=== PATIENT | female | born 1980 | race Hispanic/Latino ===

== ENCOUNTER 2024-12-11 11:51 | Emergency (ER) | payer MEDICAID ==
[~2024-12-11] VITALS: Ht 180.3 cm; Wt 83.9 kg
[2024-12-11 12:00] VITALS: BP 125/62; PULSE 60; RESP 16; TEMP 98.1; O2SAT 98
[2024-12-11] MEDS ORDERED: MUPI22OI2 TP (12:07)
--- NOTE | 2024-12-11 12:08 | ERN ---
ED Note History of Present Illness Stated Complaint: FINGER/NOSE Chief Complaint: Multiple Complaints Time Seen by MD: 11:58 Time Seen by Midlevel: 11:59 Dictation: 44-year-old female with no past medical history coming in for antibiotics for her nose infection. Past Medical History Past Medical History: Unknown Surgical History: None Review of System Dictation Constitutional: Negative for fever,chills, and weight loss Eyes: Negative for injury, pain,redness, and discharge ENT: Negative for injury,pain or swelling Cardiovascular: Negative for chest pain, palpitations, and edema Respiratory: Negative for shortness of breath, cough, and wheezing, Abdomen/GI: Negative for abdominal pain, nausea, vomiting, diarrhea, and constipation Back: Negative for injury and pain : Negative for injury, bleeding and discharge MS/Extremity: Negative for injury and deformity Skin: Negative for rash, and discoloration Neuro: Negative for headache, weakness, numbness, tingling, and seizure Psych: Negative for suicide ideation, homicidal ideation, and hallucinations Review of Systems: was completed Initial Vital Sign VS Vital Signs Date Time Temp Pulse Resp B/P (MAP) Pulse Ox O2 Delivery O2 Flow Rate FiO2 12/11/24 11:54 98.4 60 16 125/62 Room Air 12/11/24 12:00 98 0 21 Physical Exam Dictation General: awake, alert, NAD Head/Face: Normocephalic, atraumatic Eyes: PERRL, EOMI, vision at baseline ENT: oral cavity clear, TMs clear, no signs of infection, there is erythema to the nasal vestibule Neck: Trachea midline, supple, no nuchal rigidity Cardiovascular: RRR, normal S1/S2, No MRGs, no JVD Respiratory: CTAB, no respiratory distress, No rales or wheezes Abdomen: Soft, non-tender, non-distended, normal bowel sounds, no guarding or rebound. Skin: Warm, dry, normal turgor, no rash MS/Extremity: Pulses equal, no cyanosis, neurovascular intact, FROM Neuro: COAx4, GCS 15, strength 5/5, CN 2-12 intact, normal cerebellar exam, normal gait, Psych: Normal behavior, mood, and affect normal ED Course ED Course Vital Signs Date Time Temp Pulse Resp B/P (MAP) Pulse Ox O2 Delivery O2 Flow Rate FiO2 12/11/24 12:00 98.1 60 16 125/62 98 Room Air* 0 21 12/11/24 11:54 98.4 60 16 125/62 Room Air Medical Decision Making MDM MDM: 44-year-old female with no past medical history coming in for antibiotics for her nose infection. There has not in the area erythema noted to his the nasal vestibule right, no drainage, no foul odor. Patient denies any drug use. Patient does not want me to run any exams, and just wants me to give her some antibiotics. Differential diagnosis: Nasal ulcer, staph infection, Rationale: Tests considered and ordered secondary to shared decision making include: Previous outside records reviewed: Old ER visits. Risk of complication and/or morbidity or mortality of patient management: None Medications-Per medication reconciliation Need for hospitalization: Patient does not meet criteria for hospitalization. Need for emergency major/minor surgery: No There are no social concerns with this patient. Prescription drug management Prescriptions will include symptomatic care Patient's prior external medical records from other ER visits were reviewed by me as indicated. Prior testing and results from previous visits were reviewed. Prior tests were taken into account with medical decision making and resource utilization, independent historian/historians were used to obtain complete medical history. I independently interpreted the test that were performed, results were reviewed by me and considered findings on radiology if ordered. Medical management and examination interpretation discussions were had by me with other qualified healthcare professionals as indicated for the patient's care. DX & DISP Disposition: Discharge Departure Impression: Primary Impression: Pain, nose Condition: Stable Scripts Mupirocin (Mupirocin Ointment) 2 % Oint 1 APPL TP TID for 5 Days, #15 GM 0 Refills apply to affected area(s) Prov: OKSANA QUEZADA NP 12/11/24 Additional Instructions: Apply the ointment as instructed, return to the hospital if after a week or so you do not notice any improvement or worsening condition. Time of Disposition: 12:07 I have reviewed the case, and I agree with, Diagnosis and Plan OKSANA QUEZADA NP Dec 11, 2024 12:08
== END 2024-12-11 12:17 | disposition home or self-care (01) ==
LOC: EDH 11:51
DX: J34.89 Other specified disorders of nose and nasal sinuses (principal)
CPT/HCPCS: 99283